=== PATIENT | female | born 1995 | race American Indian/Alaskan Native ===

== ENCOUNTER 2019-03-21 09:11 | Emergency (ER) | payer OTHER ==
[2019-03-21 09:16] VITALS: BP 134/82
--- NOTE | 2019-03-21 11:18 | Emergency Department Report ---
[facility] Chief Complaint: Eye Problems Stated Complaint: PINK EYE Time Seen by Provider: 03/21/19 10:30 Duration: 1 Day Side: Left Symptoms: Yes Eye Itching, Yes Eye Redness, No Eye Pain, No Mucous Drainage, No Purulent Drainage, No Blurred Vision, No Preceding URI, No H/O Allergic Rhinitis, No Contact Lens Use, No Trauma, No Fever, No Headache Other History: This is a 24-year-old female nontoxic, well nourished in appearance, no acute signs of distress presents to the ED with c/o of left eye redness, itching and crusting that started yesterday. Patient denies any trauma to the eye. Denies any foreign body sensation or floaters. Patient denies any eye pain. Patient denies any visual changes or decreased vision. Patient denies any fever, chills, nausea, vomiting, chest pain, breath, headache, stiff neck numbness or tingling. Patient denies any allergies. ED Review of Systems ROS: Stated complaint: PINK EYE Other details as noted in HPI Constitutional: denies: chills, fever Eyes: eye discharge. denies: eye pain, vision change ENT: denies: ear pain, throat pain Respiratory: denies: cough, shortness of breath, wheezing Cardiovascular: denies: chest pain, palpitations Endocrine: no symptoms reported Gastrointestinal: denies: abdominal pain, nausea, diarrhea Genitourinary: denies: urgency, dysuria, discharge Musculoskeletal: denies: back pain, joint swelling, arthralgia Skin: denies: rash, lesions Neurological: denies: headache, weakness, paresthesias Psychiatric: denies: anxiety, depression Hematological/Lymphatic: denies: easy bleeding, easy bruising ED Past Medical Hx - Past Medical History Previous Medical History?: No - Surgical History Past Surgical History?: Yes Additional Surgical History: C section - Social History Smoking Status: Current Every Day Smoker Substance Use Type: None - Medications Home Medications: Home Medications Medication Instructions Recorded Confirmed Last Taken Type Polymyxin B Sulf/Trimethoprim 2 drops OS TID #1 drops 03/21/19 Unknown Rx [Polytrim Eye Drops] [facility] Exam - Exam General: Vital signs noted. No distress. Alert and acting appropriately. Eye Exam: Neither Injection, Neither Chemosis, Neither Abnormal Pupil, Neither EOMI, Neither Eye Foreign Body, Neither Lid Foreign Body, Neither Mucous Discharge, Neither Purulent Discharge, Neither Fluorescein Uptake, Neither Fluorescein Uptake (slit lamp), Neither Cell/Flare (slit lamp), Neither Corneal Edema, Neither Photophobia HEENT: No Nasal Congestion, No Pharyngeal Erythema Remainder of HEENT: Normal Exam: left eye redness and crusting with itching. left eye acuity 20/30, right eye 20/30. ED Course Vital Signs 03/21/19 09:15 Temperature 99.1 F Pulse Rate 116 H Respiratory 18 Rate Blood Pressure 134/82 O2 Sat by Pulse 99 Oximetry - Reevaluation(s) Reevaluation #1: 03/21/19 11:17 Patient is speaking in full sentences with no signs of distress noted. Critical care attestation.: If time is entered above; I have spent that time in minutes in the direct care of this critically ill patient, excluding procedure time. ED Disposition Clinical Impression: Conjunctivitis, left eye Qualifiers: Conjunctivitis type: acute Acute conjunctivitis type: bacterial Qualified Code(s): H10.32 - Unspecified acute conjunctivitis, left eye Disposition: DC- TO HOME OR SELFCARE Is pt being admited?: No Does the pt Need Aspirin: No Condition: Stable Instructions: Conjunctivitis (ED) Additional Instructions: Follow-up with a space systems operations manager doctor in 3-5 days or if symptoms worsen and continue return to emergency room as soon as possible. Prescriptions: Polymyxin B Sulf/Trimethoprim [Polytrim Eye Drops] 2 drops OS TID #1 drops [facility] [Primary Care Provider] - 3-5 Days DOLORES TEAGUE MD [Staff Physician] - 3-5 Days [facility] [Outside] - 3-5 Days Forms: Work/School Release Form(ED)
== END 2019-03-21 11:33 | disposition home or self-care (01) ==
LOC: ED 09:11
DX: H10.9 Unspecified conjunctivitis (principal); F17.200 Nicotine dependence, unspecified, uncomplicated
CPT/HCPCS: 99281

== ENCOUNTER 2019-08-26 23:45 | Emergency (ER) | payer SELFPAY ==
[2019-08-27] MEDS ORDERED: ONDANSETRON 4 MG/2 ML INJ IV ONE (00:09)
[2019-08-27] MEDS ORDERED: SODIUM CHLORIDE 0.9% 1000 ML 1,000 ML IV ONE ×2 (00:09→02:18)
[2019-08-27] MEDS ORDERED: MORPHINE 4 MG/1 ML INJ IV ONE (00:09)
[2019-08-27 00:48] LABS: Hematocrit 43.2 % (30.3-42.9); Hemoglobin 14.8 gm/dl (10.1-14.3); Mean Corpuscular HGB Conc 34 % (30-34); Mean Corpuscular Volume 81 fl (79-97); Red Blood Count 5.32 M/mm3 (3.65-5.03); Red Cell Distribution Width 13.8 % (13.2-15.2)
[2019-08-27 00:56] LABS: Platelet Count 236 K/mm3 (140-440)
[2019-08-27 01:01] LABS: Bilirubin,Urine NEG (Negative); Blood,Urine SM (Negative); Color,Urine Amber (Yellow); Mucus,Urine 3+ /HPF; Urobilinogen,Urine < 2.0 mg/dL (<2.0)
[2019-08-27 01:05] LABS: Alanine Aminotransferase 22 units/L (7-56); Albumin 4.4 g/dL (3.9-5); BUN/Creatinine Ratio 20; Blood Urea Nitrogen 16 mg/dL (7-17); Calcium 9.5 mg/dL (8.4-10.2); Hemolysis Index 13
[2019-08-27 01:07] LABS: Amphetamine Screen,Urine PRESUMPTIVE NEGATIVE; Benzodiazepines Screen,Urine PRESUMPTIVE NEGATIVE; Cannabinoid Screen,Urine PRESUMPTIVE NEGATIVE; Cocaine Screen,Urine PRESUMPTIVE NEGATIVE; Methadone Screen,Urine PRESUMPTIVE NEGATIVE; Opiate Screen,Urine PRESUMPTIVE NEGATIVE
[2019-08-27] MEDS ORDERED: POTASSIUM CHLORIDE ER 20 MEQ TAB PO ONE (01:07)
--- NOTE | 2019-08-27 02:17 | Emergency Department Report ---
ED GI Bleed HPI - General Chief complaint: GI Bleed Stated complaint: BLOODY DIARRHEA X'S 3 DAYS Time Seen by Provider: 08/27/19 00:07 Source: patient Mode of arrival: Ambulatory Limitations: No Limitations - History of Present Illness Initial comments: This is a 24-year-old female nontoxic, well nourished in appearance, no acute signs of distress presents to the ED with c/o of nausea, vomiting, diarrhea and abdominal pain 3 days. Patient stated that today she started to see blood in the stool after whipping. Patient describes vomiting as food content and yellow gastric acid. Patient describes abdominal pain as cramping and aching with level of 3/10 diffuse. Patient denies chest pain, short of breath, fever, chills, headache, stiff neck, numbness or tingling. Patient denies any recent travels. Patient denies any allergies with past medical history of hypertension. MD complaint: blood on toilet paper, other (abdominal pain with n/v/d) -: days(s) Location: diffuse Radiation: none Severity scale (0 -10): 3 Quality: cramping Consistency: constant Improves with: none Worsens with: none Associated Symptoms: abdominal pain, nausea, vomiting. denies: epistaxis, fever/chills, headaches, loss of appetite, malaise, easy bruising, rash, other bleeding, shortness of breath, syncope, weakness - Related Data Previous Rx's Medication Instructions Recorded Last Taken Type Polymyxin B Sulf/Trimethoprim 2 drops OS TID #1 drops 03/21/19 Unknown Rx [Polytrim Eye Drops] Acetaminophen/Codeine [Tylenol 1 tab PO Q6H PRN #12 tab 08/27/19 Unknown Rx /Codeine # 3 tab] Ciprofloxacin HCl [Ciprofloxacin 500 mg PO Q12HR #6 tab 08/27/19 Unknown Rx TAB] Ondansetron [Zofran Odt] 4 mg PO Q8HR PRN #20 tab.rapdis 08/27/19 Unknown Rx Allergies Allergy/AdvReac Type Severity Reaction Status Date / Time No Known Allergies Allergy Unverified 11/22/18 14:12 ED Review of Systems ROS: Stated complaint: BLOODY DIARRHEA X'S 3 DAYS Other details as noted in HPI Constitutional: denies: chills, fever Eyes: denies: eye pain, eye discharge, vision change ENT: denies: ear pain, throat pain Respiratory: denies: cough, shortness of breath, wheezing Cardiovascular: denies: chest pain, palpitations Endocrine: no symptoms reported Gastrointestinal: abdominal pain, nausea, vomiting, diarrhea Genitourinary: denies: urgency, dysuria, discharge Musculoskeletal: denies: back pain, joint swelling, arthralgia Skin: denies: rash, lesions Neurological: denies: headache, weakness, paresthesias Psychiatric: denies: anxiety, depression Hematological/Lymphatic: denies: easy bleeding, easy bruising ED Past Medical Hx - Past Medical History Previous Medical History?: Yes Hx Hypertension: Yes (during pregnacy) - Surgical History Past Surgical History?: Yes Additional Surgical History: C section - Social History Smoking Status: Former Smoker Substance Use Type: None - Medications Home Medications: Home Medications Medication Instructions Recorded Confirmed Last Taken Type Polymyxin B Sulf/Trimethoprim 2 drops OS TID #1 drops 03/21/19 Unknown Rx [Polytrim Eye Drops] Acetaminophen/Codeine [Tylenol 1 tab PO Q6H PRN #12 tab 08/27/19 Unknown Rx /Codeine # 3 tab] Ciprofloxacin HCl [Ciprofloxacin 500 mg PO Q12HR #6 tab 08/27/19 Unknown Rx TAB] Ondansetron [Zofran Odt] 4 mg PO Q8HR PRN #20 tab.rapdis 08/27/19 Unknown Rx ED Physical Exam - General Limitations: No Limitations General appearance: alert, in no apparent distress - Head Head exam: Present: atraumatic, normocephalic - Neck Neck exam: Present: normal inspection, full ROM. Absent: tenderness, meningismus, lymphadenopathy - Respiratory Respiratory exam: Present: normal lung sounds bilaterally. Absent: respiratory distress - GI/Abdominal GI/Abdominal exam: Present: soft, normal bowel sounds. Absent: distended, tenderness, guarding, rebound, rigid, diminished bowel sounds - Rectal Rectal exam: Present: normal inspection, normal rectal tone, heme (+) stool, other (ironing worker Karen YODER present during exam). Absent: decreased rectal tone, black stool, bloody stool, fecal impaction, hemorrhoids, mass, tenderness - Extremities Exam Extremities exam: Present: normal inspection, full ROM - Back Exam Back exam: Present: normal inspection, full ROM. Absent: tenderness, CVA tenderness (R), CVA tenderness (L), muscle spasm, paraspinal tenderness, vertebral tenderness, rash noted - Neurological Exam Neurological exam: Present: alert, oriented X3, normal gait - Psychiatric Psychiatric exam: Present: normal affect, normal mood - Skin Skin exam: Present: warm, dry, intact, normal color. Absent: rash ED Course Vital Signs 08/26/19 08/27/19 08/27/19 23:49 00:30 00:37 Temperature 98.9 F 98.5 F Pulse Rate 119 H 107 H 106 H Respiratory 16 14 12 Rate Blood Pressure 110/71 Blood Pressure 98/75 [Left] Blood Pressure 99/72 [Right] O2 Sat by Pulse 96 99 97 Oximetry 08/27/19 08/27/19 08/27/19 00:46 01:00 01:15 Temperature Pulse Rate 105 H 104 H Respiratory 13 11 L Rate Blood Pressure 99/72 105/74 105/74 Blood Pressure [Left] Blood Pressure [Right] O2 Sat by Pulse 97 96 Oximetry 08/27/19 08/27/19 08/27/19 01:30 01:46 02:04 Temperature Pulse Rate 105 H 100 H 93 H Respiratory 13 16 16 Rate Blood Pressure 117/79 117/79 105/74 Blood Pressure [Left] Blood Pressure [Right] O2 Sat by Pulse 98 98 Oximetry - Reevaluation(s) Reevaluation #1: 08/27/19 02:24 Patient is speaking in full sentences with no signs of distress noted. - Consultations Consultation #1: 08/27/19 02:26 Patient has been consulted with Dr. Alfonso V about patient history, physical exam, and labs/CT results and agrees to ED plan of care and discharge plan of care. ED Medical Decision Making - Lab Data Result diagrams: 08/27/19 00:11 08/27/19 00:11 - Medical Decision Making This is a 24-year-old male that presents with infectious colitis. Patient is stable and was examined by me. There is no abdominal tenderness. Negative signs of symptoms of appendicitis. Labs obtained. UA obtained. CT of abdomen obtained and dictated by the radiologist. Patient is notified of the report with no questions noted by the patient. Patient was consulted with Dr. Alfonso V and agrees for discharge with 3 days of Cipro. Patient patient's bloody stool is present due to 3 days of diarrhea with a possible anal fissure. Vital signs are stable prior to discharge. Patient received medical treatment in the ED which patient stated symptoms has resovled and subsided. Was instructed note to operate any machinery due to possible drowsiness and stated someone will drive the patient home. A by mouth challenge has been obtained and patient tolerated well with no nausea vomiting. Patient was also instructed to Follow-up with a primary care and narrative writer doctor in 2-3 days or if symptoms worsen and continue return to emergency room as soon as possible. At time of discharge, the patient does not seem toxic or ill in appearance. No acute signs of distress noted. Patient agrees to discharge treatment plan of care. No further questions noted by the patient. Critical care attestation.: If time is entered above; I have spent that time in minutes in the direct care of this critically ill patient, excluding procedure time. ED Disposition Clinical Impression: Colitis presumed to be due to infection, Hypokalemia, Rectal bleeding, Anal fissure Nausea & vomiting Qualifiers: Vomiting type: unspecified Vomiting Intractability: non-intractable Qualified Code(s): R11.2 - Nausea with vomiting, unspecified Disposition: DC-01 TO HOME OR SELFCARE Is pt being admited?: No Does the pt Need Aspirin: No Condition: Stable Additional Instructions: Follow-up with a primary care and narrative writer doctor in 2-3 days or if symptoms worsen and continue return to emergency room as soon as possible. Do not operate any machinery while taking Tylenol with codeine as this may cause drowsiness. Prescriptions: Ciprofloxacin HCl [Ciprofloxacin TAB] 500 mg PO Q12HR #6 tab Acetaminophen/Codeine [Tylenol /Codeine # 3 tab] 1 tab PO Q6H PRN #12 tab PRN Reason: Pain , Severe (7-10) Ondansetron [Zofran Odt] 4 mg PO Q8HR PRN #20 tab.rapdis PRN Reason: Nausea Referrals: PRIMARY CAREMD [Primary Care Provider] - 3-5 Days [facility] [Outside] - 3[facility] Days [facility] - 3-5 Days MARY GARCIA MD [Staff Physician] - 2-3 Days [facility] [Provider Group] - 2-3 Days Forms: Work/School Release Form(ED), Accompanied Note
--- NOTE | 2019-08-27 02:23 | Cat Scan Report ---
CT ABDOMEN AND PELVIS WITH CONTRAST INDICATION / CLINICAL INFORMATION: abd pain. Lower abdominal pain. TECHNIQUE: Axial CT images were obtained through the abdomen and pelvis after 100 mL Omnipaque [address] scans at this location are performed using CT dose reduction for ALARA by means of automated exposure control. COMPARISON: None available. FINDINGS: LOWER CHEST: No significant abnormality. LIVER: No significant abnormality. GALLBLADDER: No significant abnormality. BILE DUCTS: No significant abnormality. PANCREAS: No significant abnormality. SPLEEN: No significant abnormality. ADRENALS: No significant abnormality. RIGHT KIDNEY and URETER: No significant abnormality. LEFT KIDNEY and URETER: No significant abnormality. STOMACH and SMALL BOWEL: No significant abnormality. COLON: Mild diffuse colonic wall edema with mild mucosal enhancement. No pericolonic fluid collection or abscess. APPENDIX: No significant abnormality. PERITONEUM: Trace free fluid in the cul-de-sac. No free air. No fluid collection. LYMPH NODES: No significant adenopathy. AORTA and ARTERIES: No significant abnormality. IVC and VEINS: No significant abnormality. URINARY BLADDER: No significant abnormality. REPRODUCTIVE ORGANS: Contracted right ovarian cyst measuring 1.4 cm. ADDITIONAL FINDINGS: None. SKELETAL SYSTEM: No significant abnormality. IMPRESSION: 1. Contracted right ovarian cyst with small amount of free fluid in the cul-de-sac of the pelvis coul d represent ruptured ovarian cyst. 2.Mild diffuse colonic wall edema and mucosal enhancement. Clinical and laboratory correlation is rec ommended for possible mild colitis. Signer Name: Mariann Hicks MD Signed: 08/27/2019 2:19 AM Workstation Name: [id number]
[2019-08-27 02:43] LABS: Total Cells Counted 100
[2019-08-27 02:44] LABS: Band Neutrophils # (Manual) 0.2 K/mm3; Basophils % (Manual) 0 % (0.0-1.8); Eosinophils % (Manual) 0 % (0.0-4.3); Large Platelets 1+; Platelet Estimate Consistent w Auto; RBC Morphology Normal
[2019-08-27 05:19] VITALS: BP 117/71
== END 2019-08-27 05:20 | disposition home or self-care (01) ==
LOC: ED 23:45
DX: K52.9 Noninfective gastroenteritis and colitis, unspecified (principal); E87.6 Hypokalemia; I10 Essential (primary) hypertension; Z87.891 Personal history of nicotine dependence
CPT/HCPCS: 36415; 74177; 80053; 80307; 81001; 83690; 83735; 84703; 85007; 85025; 87086; J2405; J7030; Q9967; 96361; 96374; J2270